=== PATIENT | male | born 1940 | race African-American/Black ===

== ENCOUNTER 2018-01-16 19:18 | Emergency (ER) | payer OTHER ==
[~2018-01-16] VITALS: Ht 177.8 cm; Wt 89.5 kg
[~2018-01-16 19:18] MED LIST: GUAN2TAB PO; MAXZ PO; METO50TA PO
[2018-01-16 19:41] VITALS: BP 127/60; PULSE 76; RESP 16; TEMP 98.3; O2SAT 98
[2018-01-16] MEDS ORDERED: FURO40TA PO (21:38)
[2018-01-16] MEDS ORDERED: METO50TA PO (21:38)
[2018-01-16] MEDS ORDERED: TRIA1TAB5 PO (21:38)
--- NOTE | 2018-01-16 22:19 | PD ---
HPI Chief Complaint: Edema Time Seen by Provider: 21:47 Travel History International Travel<30 days: No Contact w/Intl Traveler<30days: No Traveled to known affect area: No History of Present Illness HPI 77-year-old male that presents to the ED for evaluation of lower leg edema. Patient has had this for 5 days. Patient is not painful but itchy. Denies ever having anything like this before. No injury or trauma. No shortness of breath or chest pain. No nausea or vomiting. No fevers chills or sweats. No discoloration. Has not seen anybody for this. Per patient he does have a history of blood pressure and seizures and takes blood pressure medications but he does not know the names of them. Allergic to aspirin and penicillin. Again he denies any pain. No other medical issues at this time. No discoloration of the skin. PFSH Past Medical History Arthritis: No Asthma: No Blood Disorders: No Anxiety: No Depression: No Heart Rhythm Problems: No Cancer: No Cardiovascular Problems: Yes High Cholesterol: Yes Chemotherapy: No Chest Pain: No Congestive Heart Failure: No COPD: No Cerebrovascular Accident: No Diabetes: No Diminished Hearing: No Endocrine: No Gastrointestinal Disorders: Yes GERD: Yes (gerd) Gout: Yes Genitourinary: No Headaches: No Hepatitis: No Hiatal Hernia: No Hypertension: Yes Immune Disorder: No Kidney Stones: No Musculoskeletal: Yes Neurologic: Yes Psychiatric: No Reproductive: No Respiratory: No Immunizations Current: Yes Migraines: Yes Myocardial Infarction: No Radiation Therapy: No Renal Failure: No Seizures: Yes Sleep Apnea: No Thyroid Disease: No Ulcer: No Influenza Vaccination: No PNEUMOCCOCAL Vaccine (Year): 2 Past Surgical History Abdominal Surgery: No Appendectomy: No Cardiac Surgery: No Cholecystectomy: No Ear Surgery: No Endocrine Surgery: No Eye Surgery: No Genitourinary Surgery: No Gynecologic Surgery: No Oral Surgery: No Thoracic Surgery: No Other Surgery: Yes (4 herniated discs) Social History Alcohol Use: Yes (OCC) Tobacco Use: No Substance Use: No Allergies-Medications (Allergen,Severity, Reaction): Coded Allergies: aspirin (Unverified Allergy, Severe, SWELLING, 01/16/18) PT DENIES penicillin G (Unverified Allergy, Severe, CONVULSIONS, 01/16/18) PT DENIES Reported Meds & Prescriptions Reported Meds & Active Scripts Active Reported Furosemide 40 Mg Tab 40 Mg PO DAILY Triamterene-Hydrochlorothiazide 75-50 Mg Tab 1 Tab PO DAILY Metoprolol Tartrate 50 Mg Tab 50 Mg PO DAILY Review of Systems Except as stated in HPI: all other systems reviewed are Neg Physical Exam Narrative GENERAL: SKIN: Warm and dry. HEAD: Atraumatic. Normocephalic. EYES: Pupils equal and round. No scleral icterus. No injection or drainage. ENT: No nasal bleeding or discharge. Mucous membranes pink and moist. NECK: Trachea midline. No JVD. CARDIOVASCULAR: Regular rate and rhythm. RESPIRATORY: No accessory muscle use. Clear to auscultation. Breath sounds equal bilaterally. GASTROINTESTINAL: Abdomen soft, non-tender, nondistended. Hepatic and splenic margins not palpable. MUSCULOSKELETAL: Extremities without clubbing, cyanosis, or edema. No obvious deformities. Full range of motion of the upper and lower extremities bilaterally. 2+ pulses bilaterally. Patient does have 1+ pitting edema to the feet bilaterally. No calf tenderness or swelling. NEUROLOGICAL: Awake and alert. No obvious cranial nerve deficits. Motor grossly within normal limits. Five out of 5 muscle strength in the arms and legs. Normal speech. PSYCHIATRIC: Appropriate mood and affect; insight and judgment normal. Data Data Last Documented VS Vital Signs Date Time Temp Pulse Resp B/P (MAP) Pulse Ox O2 Delivery O2 Flow Rate FiO2 01/16/18 21:28 18 100 Room Air 01/16/18 19:41 98.3 76 127/60 (82) Orders Orders Complete Blood Count With Diff (01/16/18 22:00) Comprehensive Metabolic Panel (01/16/18 22:00) B-Type Natriuretic Peptide (01/16/18 22:00) Magnesium (Mg) (01/16/18 22:00) Us Leg Venous Doppler Bilat (01/16/18 ) [facility] Medical Decision Making Medical Screen Exam Complete: Yes Emergency Medical Condition: Yes Medical Record Reviewed: Yes Differential Diagnosis Leg edema versus kidney failure versus DVT versus pedal edema versus CHF Narrative Course 77-year-old male who presents to the ED for evaluation of leg edema. Patient was properly examined and was found to have signs and symptoms consistent with appears to be more likely pedal edema. Labs and imaging order. This will be sent up to my attending pending disposition and plan. Joni Hester Jan 16, 2018 22:19
[2018-01-16 22:29] LABS: AUTOMATED NEUTROPHIL # 5.3 TH/MM3 (1.8-7.7); BASOPHIL # 0.1 TH/MM3 (0-0.2); EOSINOPHIL # 0.2 TH/MM3 (0-0.4); EOSINOPHIL % 2.7 % (0.0-4.0); HEMATOCRIT 29.8 % (39.0-51.0); LYMPH % 26.4 % (9.0-44.0); LYMPHOCYTE # 2.3 TH/MM3 (1.0-4.8); MEAN CELL VOLUME 85.8 FL (80.0-100.0); MEAN CORPUSCULAR HEMOGLOBIN 28.6 PG (27.0-34.0); MEAN CORPUSCULAR HGB CONC 33.4 % (32.0-36.0); MEAN PLATELET VOLUME 8.1 FL (7.0-11.0); MONO % 9.2 % (0.0-8.0); MONOCYTE # 0.8 TH/MM3 (0-0.9); NEUT % 60.7 % (16.0-70.0); PLATELET COUNT 384 TH/MM3 (150-450); RED BLOOD COUNT 3.47 MIL/MM3 (4.50-5.90); RED CELL DISTRIBUTION WIDTH 16.4 % (11.6-17.2); WHITE BLOOD COUNT 8.8 TH/MM3 (4.0-11.0)
[2018-01-16 22:43] LABS: ALBUMIN 3.4 GM/DL (3.4-5.0); ALT (GPT) 14 U/L (12-78); AST (GOT) 21 U/L (15-37); BICARBONATE 27.9 MEQ/L (21.0-32.0); BLOOD UREA NITROGEN 22 MG/DL (7-18); CHLORIDE 104 MEQ/L (98-107); CREATININE 2.34 MG/DL (0.60-1.30); GLOMERULAR FILTRATION RATE 33 ML/MIN (>89); GLUCOSE,RANDOM 91 MG/DL (74-106); MAGNESIUM 1.9 MG/DL (1.5-2.5); SODIUM (NA) 142 MEQ/L (136-145)
[2018-01-16 22:46] LABS: ALKALINE PHOSPHATASE 95 U/L (45-117); TOTAL BILIRUBIN ADULT 0.2 MG/DL (0.2-1.0)
--- NOTE | 2018-01-16 22:54 | PD ---
Data Data Last Documented VS Vital Signs Date Time Temp Pulse Resp B/P (MAP) Pulse Ox O2 Delivery O2 Flow Rate FiO2 01/16/18 21:28 18 100 Room Air 01/16/18 19:41 98.3 76 127/60 (82) Orders Orders Complete Blood Count With Diff (01/16/18 22:00) Comprehensive Metabolic Panel (01/16/18 22:00) B-Type Natriuretic Peptide (01/16/18 22:00) Magnesium (Mg) (01/16/18 22:00) Us Leg Venous Doppler Bilat (01/16/18 ) Labs Laboratory Tests Test 01/16/18 22:00 White Blood Count 8.8 TH/MM3 Red Blood Count 3.47 MIL/MM3 Hemoglobin 10.0 GM/DL Hematocrit 29.8 % Mean Corpuscular Volume 85.8 FL Mean Corpuscular Hemoglobin 28.6 PG Mean Corpuscular Hemoglobin Concent 33.4 % Red Cell Distribution Width 16.4 % Platelet Count 384 TH/MM3 Mean Platelet Volume 8.1 FL Neutrophils (%) (Auto) 60.7 % Lymphocytes (%) (Auto) 26.4 % Monocytes (%) (Auto) 9.2 % Eosinophils (%) (Auto) 2.7 % Basophils (%) (Auto) 1.0 % Neutrophils # (Auto) 5.3 TH/MM3 Lymphocytes # (Auto) 2.3 TH/MM3 Monocytes # (Auto) 0.8 TH/MM3 Eosinophils # (Auto) 0.2 TH/MM3 Basophils # (Auto) 0.1 TH/MM3 CBC Comment DIFF FINAL Differential Comment Blood Urea Nitrogen 22 MG/DL Creatinine 2.34 MG/DL Random Glucose 91 MG/DL Total Protein 8.0 GM/DL Albumin 3.4 GM/DL Calcium Level 10.0 MG/DL Magnesium Level 1.9 MG/DL Alkaline Phosphatase 95 U/L Aspartate Amino Transf (AST/SGOT) 21 U/L Alanine Aminotransferase (ALT/SGPT) 14 U/L Total Bilirubin 0.2 MG/DL Sodium Level 142 MEQ/L Potassium Level 3.5 MEQ/L Chloride Level 104 MEQ/L Carbon Dioxide Level 27.9 MEQ/L Anion Gap 10 MEQ/L Estimat Glomerular Filtration Rate 33 ML/MIN B-Type Natriuretic Peptide 23 PG/ML [facility] Medical Record Reviewed: Yes Supervised Visit with VILLA: No Interpretation(s) Last Impressions Lower Extremity Ultrasound 01/16/18 0000 Signed Impressions: Service Date/Time: Tuesday, January 16, 2018 22:32 - CONCLUSION: Negative exam with no evidence of deep venous thrombosis. Torrey Valdez MD Narrative Course During the course of the patient's emergency department visit, the patient's history, examination, and differential diagnosis were reviewed with the patient. The patient was placed on a bus driver/monitor with oximetry and frequent blood pressure monitoring. The patient had IV access obtained and blood work sent for analysis. The patient's laboratory studies were reviewed and remarkable for a white count of 8.8, hemoglobin 10, platelets 384 with 9.2 monocytes, CMP is remarkable for a BUN of 22, creatinine 2.34, BNP is 23 Radiology studies were reviewed and remarkable for an ultrasound of bilateral lower extremities that reveals no evidence of DVT. Given the patient's elevated BUN and creatinine in a pattern to suggest renal insufficiency, a diuretic will be held and left to the discretion of his primary care physician. The patient will be given a copy of his labs at discharge. The patient was instructed on the importance of wearing compression stockings and elevating his legs frequently. The patient is resting comfortably and feels better, is alert and in no distress. The patient's results and examination findings were discussed with the patient. The repeat examination is unremarkable and benign. The history, exam, diagnostic testing, and current condition do not suggest any significant pathology to warrant further testing, continued ED treatment, admission, or surgical evaluation at this point. The vital signs have been stable. The patient does not have uncontrollable pain, intractable vomiting, or other significant symptoms. The patient's condition is stable and appropriate for discharge. The patient will pursue further outpatient evaluation with a primary care physician or other designated or consulting physician as indicated in the discharge instructions. The patient expressed understanding and was agreeable with this plan. Diagnosis Primary Impression: Peripheral edema Additional Impression: Renal insufficiency Referrals: Primary Care Physician 1 day Patient Instructions: General Instructions, Leg Edema (ED) Additional Instruction: The patient is instructed to elevate his legs frequently and wear compression stockings daily. The patient is given a copy of his labs to review with his primary care physician due to his renal insufficiency. Med/Other Pt SpecificInfo: No Change to Meds Disposition: 01 DISCHARGE HOME Condition: Stable Amaris Watson MD Jan 16, 2018 22:54
--- NOTE | 2018-01-16 22:57 | RADRPT ---
EXAM DATE/TIME: 01/16/2018 22:32 [facility] COMPARISON: No previous studies available for comparison. INDICATIONS : Bilateral leg swelling. MEDICAL HISTORY : Hypercholesterolemia. Hypertension. Gastroesophageal reflux disease. Glasses. Dementia. Seizures. Hyp erlipidemia. Renal disease. GOUT. SURGICAL HISTORY : Bilateral leg surgery. back surgery. ENCOUNTER: Initial ACUITY: 2 weeks PAIN SCORE: 2/10 LOCATION: Bilateral legs. TECHNIQUE: Venous ultrasound of the left and right leg was performed from the inguinal ligament to the proximal calf. Real-time, color Doppler and spectral tracing, compression and augmentation techniques were us ed. FINDINGS: RIGHT LEG: There is normal compressibility of the deep venous system from the inguinal region to the proximal ca lf. No echogenic clot is seen in the lumen of the common femoral, femoral, popliteal, and posterior tibial veins. There is a normal response of the venous system to proximal and distal augmentation an d respiration. LEFT LEG: There is normal compressibility of the deep venous system from the inguinal region to the proximal ca lf. No echogenic clot is seen in the lumen of the common femoral, femoral, popliteal, and posterior tibial veins. There is a normal response of the venous system to proximal and distal augmentation an d respiration. CONCLUSION: Negative exam with no evidence of deep venous thrombosis. Torrey Valdez MD on January 16, 2018 at 22:54 Board Certified Radiologist. This report was verified electronically.
== END 2018-01-17 01:31 | disposition home or self-care (01) ==
LOC: NEPE 19:18 → EDBD 19:18 → NEPE 01-17 01:31
DX: R60.0 Localized edema (principal); N28.9 Disorder of kidney and ureter, unspecified; E78.00 Pure hypercholesterolemia, unspecified; K21.9 Gastro-esophageal reflux disease without esophagitis; M10.9 Gout, unspecified; I10 Essential (primary) hypertension; Z79.899 Other long term (current) drug therapy; Z88.0 Allergy status to penicillin; Z86.69 Personal history of other diseases of the nervous system and sense organs
CPT/HCPCS: 80053; 83735; 83880; 85025; 93970

== ENCOUNTER 2018-03-10 10:36 | Emergency (ER) | payer OTHER, MEDICAID ==
[~2018-03-10] VITALS: Ht 177.8 cm; Wt 80.0 kg
[~2018-03-10 10:36] MED LIST changes: +FURO40TA PO; -GUAN2TAB PO; -MAXZ PO; +TRIA1TAB5 PO
[2018-03-10 10:40] VITALS: BP 154/83; PULSE 89; RESP 18; TEMP 98.3; O2SAT 98
--- NOTE | 2018-03-10 11:22 | PD ---
HPI Chief Complaint: Edema Time Seen by Provider: 10:54 Travel History International Travel<30 days: No Contact w/Intl Traveler<30days: No Traveled to known affect area: No History of Present Illness HPI 77yo M with PMH of HTN, seizure presents to the ED with c/o bilateral lower extremity edema for a while. Pt was seen here on 01/16/18 for the same thing and had US of bilateral lower extremity that showed no DVT. Pt had elevated BUN /creatinine at the time and was advised to follow up with primary care physician as outpatient. Pt said he has not followed up with primary because his appointment i next month. Said he was using compression stockings which was helping with the swelling but lose his stockings. Denies any fever, chest pain, sob, n/v, abdominal pain, focal weakness or numbness or trauma. PFSH Past Medical History Arthritis: No Asthma: No Blood Disorders: No Anxiety: No Depression: No Heart Rhythm Problems: No Cancer: No Cardiovascular Problems: Yes High Cholesterol: Yes Chemotherapy: No Chest Pain: No Congestive Heart Failure: No COPD: No Cerebrovascular Accident: No Diabetes: No Diminished Hearing: No Endocrine: No Gastrointestinal Disorders: Yes GERD: Yes (gerd) Gout: Yes Genitourinary: No Headaches: No Hepatitis: No Hiatal Hernia: No Hypertension: Yes Immune Disorder: No Kidney Stones: No Musculoskeletal: Yes Neurologic: Yes Psychiatric: No Reproductive: No Respiratory: No Immunizations Current: Yes Migraines: Yes Myocardial Infarction: No Radiation Therapy: No Renal Failure: No Seizures: Yes Sleep Apnea: No Thyroid Disease: No Ulcer: No PNEUMOCCOCAL Vaccine (Year): 2 Past Surgical History Abdominal Surgery: No Appendectomy: No Cardiac Surgery: No Cholecystectomy: No Ear Surgery: No Endocrine Surgery: No Eye Surgery: No Genitourinary Surgery: No Gynecologic Surgery: No Neurologic Surgery: No Oral Surgery: No Thoracic Surgery: No Other Surgery: Yes (4 herniated discs) Social History Alcohol Use: Yes (OCC) Tobacco Use: No Substance Use: No Allergies-Medications (Allergen,Severity, Reaction): Coded Allergies: aspirin (Unverified Allergy, Severe, SWELLING, 03/10/18) PT DENIES penicillin G (Unverified Allergy, Severe, CONVULSIONS, 03/10/18) PT DENIES Reported Meds & Prescriptions Reported Meds & Active Scripts Active Reported Furosemide 40 Mg Tab 40 Mg PO DAILY Triamterene-Hydrochlorothiazide 75-50 Mg Tab 1 Tab PO DAILY Metoprolol Tartrate 50 Mg Tab 50 Mg PO DAILY Review of Systems Except as stated in HPI: all other systems reviewed are Neg Physical Exam Narrative GENERAL: 77yo M not in distress. SKIN: Focused skin assessment warm/dry. HEAD: Atraumatic. Normocephalic. EYES: Pupils equal and round. No scleral icterus. No injection or drainage. ENT: No nasal bleeding or discharge. Mucous membranes pink and moist. NECK: Trachea midline. No JVD. CARDIOVASCULAR: Regular rate and rhythm. No murmur appreciated. RESPIRATORY: No accessory muscle use. Clear to auscultation. Breath sounds equal bilaterally. GASTROINTESTINAL: Abdomen soft, non-tender, nondistended. MUSCULOSKELETAL: No obvious deformities. No clubbing. No cyanosis. +Bilateral lower extremity edema up to knees. No erythema. DP intact bilaterally. Sensation intact. FROM in bilateral hip and knees. NEUROLOGICAL: Awake and alert. No obvious cranial nerve deficits. Motor grossly within normal limits. Normal speech. PSYCHIATRIC: Appropriate mood and affect; insight and judgment normal. Data Data Last Documented VS Vital Signs Date Time Temp Pulse Resp B/P (MAP) Pulse Ox O2 Delivery O2 Flow Rate FiO2 03/10/18 10:40 98.3 89 18 154/83 (106) 98 Orders Orders Basic Metabolic Panel (Bmp) (03/10/18 11:04) Júnior Sleeve,Knee Xl (03/10/18 13:38) Stocking, Júnior Knee Med Pr (03/10/18 13:39) Labs Laboratory Tests Test 03/10/18 11:23 Blood Urea Nitrogen 30 MG/DL Creatinine 2.44 MG/DL Random Glucose 72 MG/DL Calcium Level 9.3 MG/DL Sodium Level 143 MEQ/L Potassium Level 4.1 MEQ/L Chloride Level 109 MEQ/L Carbon Dioxide Level 23.8 MEQ/L Anion Gap 10 MEQ/L Estimat Glomerular Filtration Rate 32 ML/MIN [facility] Medical Decision Making Medical Screen Exam Complete: Yes Emergency Medical Condition: Yes Differential Diagnosis Acute on chronic kidney disease vs. venous insufficiency Narrative Course 77yo M with bilateral lower extremity edema for a long time. Pt said the compression stockings he had worked but lose them. Labs reviewed, BUN/ creatinine is elevated at 30/2.44 but is not changed from before in 01/2018. Pt given compression stocking and will follow up with primary care physician. Return precautions given. Diagnosis Primary Impression: Leg edema Patient Instructions: General Instructions Departure Forms: Tests/Procedures Additional Instructions: Please follow up with your primary care physician as outpatient. Return to the ED if symptoms worsen. Med/Other Pt SpecificInfo: No Change to Meds Disposition: 01 DISCHARGE HOME Condition: Stable GerdaDeisy DO Mar 10, 2018 11:22
[2018-03-10 12:26] LABS: BICARBONATE 23.8 MEQ/L (21.0-32.0); CALCIUM 9.3 MG/DL (8.5-10.1); CREATININE 2.44 MG/DL (0.60-1.30)
== END 2018-03-10 14:44 | disposition home or self-care (01) ==
LOC: NEPC 10:36
DX: R60.0 Localized edema (principal); I10 Essential (primary) hypertension
CPT/HCPCS: 80048; 99283

== ENCOUNTER 2018-04-03 06:16 | Emergency (ER) | payer OTHER, MEDICAID ==
[~2018-04-03] VITALS: Ht 188 cm; Wt 83.0 kg
[2018-04-03 06:20] VITALS: BP 143/73; PULSE 77; RESP 15; TEMP 97.3; O2SAT 99
--- NOTE | 2018-04-03 07:37 | PD ---
HPI Chief Complaint: Edema Time Seen by Provider: 07:19 Travel History International Travel<30 days: No Contact w/Intl Traveler<30days: No Traveled to known affect area: No History of Present Illness HPI 77 y/o male presents with bilateral lower leg pain and swelling that has been intermittent for the past couple of months. He states he has an appointment with Dr. Mcpherson that he follows with as the primary care doctor as well early next week. He states he is here because he does not know what else to do. Quality pain is sharp. Severity is moderate. Pain is worse with movement. He denies other modifying factors. He states he has been trying compression stockings without relief. He denies any trauma. He denies other concurrent complaints. PFSH Past Medical History Arthritis: No Asthma: No Blood Disorders: No Anxiety: No Depression: No Heart Rhythm Problems: No Cancer: No Cardiovascular Problems: Yes High Cholesterol: Yes Chemotherapy: No Chest Pain: No Congestive Heart Failure: No COPD: No Cerebrovascular Accident: No Diabetes: No Diminished Hearing: No Endocrine: No Gastrointestinal Disorders: Yes GERD: Yes (gerd) Gout: Yes Genitourinary: No Headaches: No Hepatitis: No Hiatal Hernia: No Hypertension: Yes Immune Disorder: No Implanted Vascular Access Dvce: No Kidney Stones: No Musculoskeletal: Yes Neurologic: Yes Psychiatric: No Reproductive: No Respiratory: No Immunizations Current: Yes Migraines: Yes Myocardial Infarction: No Radiation Therapy: No Renal Failure: No Seizures: Yes Sleep Apnea: No Thyroid Disease: No Ulcer: No Tetanus Vaccination: < 5 Years Influenza Vaccination: Yes PNEUMOCCOCAL Vaccine (Year): 2 Past Surgical History Abdominal Surgery: No Appendectomy: No Cardiac Surgery: No Cholecystectomy: No Ear Surgery: No Endocrine Surgery: No Eye Surgery: No Genitourinary Surgery: No Gynecologic Surgery: No Neurologic Surgery: No Oral Surgery: No Thoracic Surgery: No Other Surgery: Yes (4 herniated discs) Social History Alcohol Use: Yes (OCC) Tobacco Use: No Substance Use: No Allergies-Medications (Allergen,Severity, Reaction): Coded Allergies: aspirin (Unverified Allergy, Severe, SWELLING, 04/03/18) PT DENIES penicillin G (Unverified Allergy, Severe, CONVULSIONS, 04/03/18) PT DENIES Reported Meds & Prescriptions Reported Meds & Active Scripts Active Reported Furosemide 40 Mg Tab 40 Mg PO DAILY Triamterene-Hydrochlorothiazide 75-50 Mg Tab 1 Tab PO DAILY Metoprolol Tartrate 50 Mg Tab 50 Mg PO DAILY Review of Systems Except as stated in HPI: all other systems reviewed are Neg Physical Exam Narrative GENERAL: 77 y/o male in no apparent distress SKIN: Focused skin assessment warm/dry. No signs of cellulitis HEAD: Atraumatic. Normocephalic. EYES: Pupils equal and round. No scleral icterus. No injection or drainage. ENT: No nasal bleeding or discharge. Mucous membranes pink and moist. NECK: Trachea midline. CARDIOVASCULAR: Regular rate and rhythm. RESPIRATORY: No accessory muscle use. Clear to auscultation. Breath sounds equal bilaterally. GASTROINTESTINAL: Abdomen soft, non-tender, nondistended. MUSCULOSKELETAL: No obvious deformities. No clubbing. No cyanosis. Pain with palpation of bilateral calves, no pain with joints , neurovascularly intact, no lacerations over, compartments soft. NEUROLOGICAL: Awake and alert. No obvious cranial nerve deficits. Motor grossly within normal limits. Normal speech. PSYCHIATRIC: Appropriate mood and affect; insight and judgment normal. Data Data Last Documented VS Vital Signs Date Time Temp Pulse Resp B/P (MAP) Pulse Ox O2 Delivery O2 Flow Rate FiO2 04/03/18 10:34 75 18 140/80 (100) 98 04/03/18 07:30 Room Air 04/03/18 06:20 97.3 Orders Orders Magnesium (Mg) (04/03/18 07:19) Phosphorus (Po4) (04/03/18 07:19) Complete Blood Count With Diff (04/03/18 07:19) Basic Metabolic Panel (Bmp) (04/03/18 07:19) Chest, Pa & Lat (04/03/18 ) Iv Access Insert/Monitor (04/03/18 07:19) Ecg Monitoring (04/03/18 07:19) Oximetry (04/03/18 07:19) Us Leg Venous Doppler Bilat (04/03/18 ) Ed Discharge Order (04/03/18 10:04) Labs Laboratory Tests Test 04/03/18 07:30 White Blood Count 10.2 TH/MM3 Red Blood Count 3.42 MIL/MM3 Hemoglobin 9.4 GM/DL Hematocrit 29.0 % Mean Corpuscular Volume 85.0 FL Mean Corpuscular Hemoglobin 27.4 PG Mean Corpuscular Hemoglobin Concent 32.3 % Red Cell Distribution Width 16.5 % Platelet Count 346 TH/MM3 Mean Platelet Volume 8.2 FL Neutrophils (%) (Auto) 64.6 % Lymphocytes (%) (Auto) 22.0 % Monocytes (%) (Auto) 8.7 % Eosinophils (%) (Auto) 3.9 % Basophils (%) (Auto) 0.8 % Neutrophils # (Auto) 6.6 TH/MM3 Lymphocytes # (Auto) 2.2 TH/MM3 Monocytes # (Auto) 0.9 TH/MM3 Eosinophils # (Auto) 0.4 TH/MM3 Basophils # (Auto) 0.1 TH/MM3 CBC Comment DIFF FINAL Differential Comment Blood Urea Nitrogen 22 MG/DL Creatinine 2.53 MG/DL Random Glucose 94 MG/DL Calcium Level 9.4 MG/DL Phosphorus Level 2.9 MG/DL Magnesium Level 2.1 MG/DL Sodium Level 144 MEQ/L Potassium Level 3.7 MEQ/L Chloride Level 109 MEQ/L Carbon Dioxide Level 25.8 MEQ/L Anion Gap 9 MEQ/L Estimat Glomerular Filtration Rate 30 ML/MIN [facility] Medical Decision Making Medical Screen Exam Complete: Yes Emergency Medical Condition: Yes Medical Record Reviewed: Yes (Past history confirmed) Interpretation(s) CBC & BMP Diagram 04/03/18 07:30 Calcium Level 9.4, Phosphorus Level 2.9, Magnesium Level 2.1 Last 24 hours Impressions Lower Extremity Ultrasound 04/03/18 0000 Signed Impressions: CONCLUSION: 1. Nonocclusive, isolated mural thrombus in the right popliteal/peritoneal ema ction. This appears chronic. No findings of deep venous thrombosis. Deep venous systems are otherwise clear bilaterally. 2. Enlarged bilateral inguinal lymph nodes are likely reactive. Chest X-Ray 04/03/18 0000 Signed Impressions: CONCLUSION: No acute cardiopulmonary disease Differential Diagnosis DVT, Velasco cyst, musculoskeletal Narrative Course Will check blood work, chest x-ray, Doppler ultrasound and reevaluate. Patient understands if this workup does not show emergent process he needs to talk with his primary care doctor about moving up his appointment for further care Patient's renal function is slowly creeping up but his potassium is normal. 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 Patient also has nonocclusive isolated mural thrombus in the right popliteal peroneal junction that appears chronic without DVT, he has enlarged bilateral inguinal lymph nodes that has no findings of cellulitis or intra-abdominal process or leukocytosis or fever. These will need to be followed closely as an outpatient. Patient denies any new complaints and states that they are feeling better. all questions answered. Patient knows that follow up is incumbent on them and to return to the emergency room immediately if new or worsening symptoms develop. Patient given strict return precautions, vitals reviewed and are normal, agrees to further workup as an outpatient which case management will assist with Physician Communication Physician Communication dr mcpherson states only follows him from a nephrology standpoint dr avendaño with radiology states that area of mural thrombus is in peroneal near popliteal region and chronic and probably area of prior clot. He advises that this can be followed outpatient and likely does not need blood thinner Diagnosis Primary Impression: Pain and swelling of lower leg Qualified Codes: M79.669 - Pain in unspecified lower leg; M79.89 - Other specified soft tissue disorders Additional Impression: Lymphadenopathy, inguinal Patient Instructions: General Instructions Additional Instructions: return as needed, set up a primary doctor for follow up this week, elevate legs at rest, tylenol as needed Med/Other Pt SpecificInfo: No Change to Meds Disposition: 01 DISCHARGE HOME Condition: Stable Sarah Finney MD Apr 03, 2018 07:37
--- NOTE | 2018-04-03 07:53 | RADRPT ---
EXAM DATE: 04/03/2018 7:50 AM EDT AGE/SEX: 77 years / Male INDICATIONS: Chest pain and bilateral leg swelling for three days. CLINICAL DATA: This is the patient's initial encounter. Patient reports that signs and symptoms have been present for 3 days and indicates a pain score of 3/10. MEDICAL/SURGICAL HISTORY: . Hypercholesterolemia. Hypertension. Gastroesophageal reflux disease . Glasses. Dementia. Seizures. Hyperlipidemia. Renal disease. GOUT. . Bilateral leg surgery. back ford rgery. COMPARISON: [facility] [place], CHEST PA & LAT, 12/08/2011. . FINDINGS: PA and lateral views of the chest demonstrate the lungs to be symmetrically aerated without evidence of mass, infiltrate or effusion. The cardiomediastinal contours are unremarkable. Osseous structures are intact. CONCLUSION: No acute cardiopulmonary disease Electronically signed by: Abhishek Singh MD 04/03/2018 7:52 AM EDT
[2018-04-03 08:00] LABS: AUTOMATED NEUTROPHIL # 6.6 TH/MM3 (1.8-7.7); BASOPHIL # 0.1 TH/MM3 (0-0.2); BASOPHIL % 0.8 % (0.0-2.0); EOSINOPHIL # 0.4 TH/MM3 (0-0.4); EOSINOPHIL % 3.9 % (0.0-4.0); HEMOGLOBIN 9.4 GM/DL (13.0-17.0); LYMPHOCYTE # 2.2 TH/MM3 (1.0-4.8); MEAN CORPUSCULAR HEMOGLOBIN 27.4 PG (27.0-34.0); MEAN CORPUSCULAR HGB CONC 32.3 % (32.0-36.0); MEAN PLATELET VOLUME 8.2 FL (7.0-11.0); MONO % 8.7 % (0.0-8.0); MONOCYTE # 0.9 TH/MM3 (0-0.9); NEUT % 64.6 % (16.0-70.0); PLATELET COUNT 346 TH/MM3 (150-450); RED BLOOD COUNT 3.42 MIL/MM3 (4.50-5.90); RED CELL DISTRIBUTION WIDTH 16.5 % (11.6-17.2); WHITE BLOOD COUNT 10.2 TH/MM3 (4.0-11.0)
[2018-04-03 08:14] LABS: BICARBONATE 25.8 MEQ/L (21.0-32.0); CALCIUM 9.4 MG/DL (8.5-10.1); CREATININE 2.53 MG/DL (0.60-1.30); MAGNESIUM 2.1 MG/DL (1.5-2.5); PHOSPHORUS 2.9 MG/DL (2.5-4.9)
--- NOTE | 2018-04-03 09:01 | RADRPT ---
EXAM DATE: 04/03/2018 8:55 AM EDT AGE/SEX: 77 years / Male INDICATIONS: Bilateral leg swelling. CLINICAL DATA: This is the patient's subsequent encounter. Patient reports that signs and symptoms h ave been present for 1 day and indicates a pain score of 0/10. MEDICAL/SURGICAL HISTORY: Hypercholesterolemia. Hypertension. Gastroesophageal reflux disease . Dementia. Seizures. Migraines. Hyperlipidemia. Renal disease. Gout. Rheumatoid arthritis. Anemia. Blood transfusion. . Herniated disc repair. Neck surgery. Bilateral leg surgery. COMPARISON: [facility] – [place], LEG BILATERAL VENOUS DOPPLER, 01/16/2018. . TECHNIQUE: Venous ultrasound of both lower extremities was performed from the inguinal ligament to t he proximal calf. Real-time, color Doppler and spectral tracing, compression and augmentation techni ques were used. FINDINGS: Right Leg: FINDINGS Left Leg: Normal compression of the deep venous system from the inguinal region to the proximal calf . Small foci of chronic appearing, nonocclusive mural thrombus in the right popliteal/peroneal juncti on. Normal response of the venous system to augmentation and respiration on the left. No augmentation performed on the right. Also noted are bilateral prominent inguinal lymph nodes with the largest on the right measuring 3.5 x 1.9 x 1.0 cm and on the left measuring 4.3 x 1.8 x 0.9 cm. These are likely reactive. Other: None. CONCLUSION: 1. Nonocclusive, isolated mural thrombus in the right popliteal/peritoneal junction. This appears ch ronic. No findings of deep venous thrombosis. Deep venous systems are otherwise clear bilaterally. 2. Enlarged bilateral inguinal lymph nodes are likely reactive. Electronically signed by: Chacho Bazan MD 04/03/2018 8:59 AM EDT
[2018-04-03 10:34] VITALS: BP 140/80
== END 2018-04-03 10:38 | disposition home or self-care (01) ==
LOC: NEPE 06:16
DX: M79.662 Pain in left lower leg (principal); M79.661 Pain in right lower leg; M79.89 Other specified soft tissue disorders; R59.0 Localized enlarged lymph nodes; I10 Essential (primary) hypertension; E78.00 Pure hypercholesterolemia, unspecified; F03.90 Unspecified dementia, unspecified severity, without behavioral disturbance, psychotic disturbance, mood disturbance, and anxiety; D64.9 Anemia, unspecified; M10.9 Gout, unspecified; K21.9 Gastro-esophageal reflux disease without esophagitis; M06.9 Rheumatoid arthritis, unspecified; Z88.0 Allergy status to penicillin; Z79.899 Other long term (current) drug therapy
CPT/HCPCS: 71046; 80048; 83735; 84100; 85025; 93970